=== PATIENT | female | born 1995 | race Caucasian/White ===

== ENCOUNTER 2021-09-08 22:57 | Inpatient (IN) ==
[2021-09-08] MEDS ORDERED: OXYTOCIN/LR 20 UNIT/1,000 ML BAG IV PRN (23:29)
[2021-09-08] MEDS ORDERED: BUTORPHANOL 2 MG/ML VIAL IV PRN (23:29)
[2021-09-08] MEDS ORDERED: ONDANSETRON 4 MG/2 ML VIAL IV PRN (23:29)
[2021-09-08] MEDS ORDERED: LACTATED RINGERS 1,000 ML IV SCH (23:30)
[2021-09-08 23:54] LABS: Basophils % 0.4 % (0.0-0.8); Eosinophils % 0.1 % (0.00-10.9); Hematocrit 36.7 VOL% (35.7-47.0); Hemoglobin 12.2 GM/DL (12.0-16.0); Immature Granulocytes % 0.9 %; Lymphocytes # 2.5 10*3/uL (1.4-4.0); Mean Corpuscular HGB Conc 33.2 GM/DL (32-36); Mean Corpuscular Volume 87.2 FL (87-102); Mean Platelet Volume 10.8 FL (9.6-12.0); Monocytes % 7.5 % (1.7-12.7); Neutrophils % 68.1 % (38.7-73.9); Platelet Count 193 T/CUMM (130-400); Red Blood Count 4.21 MC/CUMM (3.8-5.5); Red Cell Distribution Width 12.2 % (9.3-17.3); White Blood Count 10.8 T/CUMM (4-12)
[2021-09-09 00:10] LABS: Albumin 2.8 G/DL (3.4-5.0); Bilirubin,Total 0.4 MG/DL (0.20-1.00); Calcium 8.9 MG/DL (8.5-10.1); Osmolality,Calculated 270.8 MOS/KG (273-304); Potassium 3.4 MMOL/L (3.5-5.1); Total Protein 6.9 G/DL (6.4-8.2)
[2021-09-09 00:34] LABS: Hepatitis B Surface Ag Quant 0.14 Index; Hepatitis B Surface Ag Result Non-Reactive (NonReactive)
[2021-09-09] MEDS ORDERED: hydrOXYzine HCL 25 MG/1 ML VIAL IM PRN (02:53)
[2021-09-09] MEDS ORDERED: PROMETHAZINE 25 MG/1 ML VIAL IM PRN (02:53)
[2021-09-09] MEDS ORDERED: ONDANSETRON 4 MG/2 ML VIAL IV PRN ×2 (02:53→09:38)
[2021-09-09] MEDS ORDERED: ePHEDrine 50 MG/ML VIAL IV PRN (02:53)
[2021-09-09] MEDS ORDERED: diphenhydrAMINE 50 MG/1 ML VIAL IV PRN ×2 (02:53)
[2021-09-09] MEDS ORDERED: NALOXONE 0.4 MG/ML VIAL IV PRN (02:53)
[2021-09-09] MEDS ORDERED: FAMOTIDINE 20 MG/2 ML VIAL IV ONE (02:55)
[2021-09-09] MEDS ORDERED: CITRIC ACID/SODIUM CITRATE 30 ML UDCUP PO ONE (02:55)
[2021-09-09] MEDS ORDERED: LACTATED RINGERS 1,000 ML IV ONE (02:56)
[2021-09-09] MEDS ORDERED: fentaNYL 2 MCG/ROPIV 0.2% EPID 100 ML EPIDURAL SCH (03:00)
[2021-09-09 04:26] LABS: HIV Antigen/Antibody Result Nonreactive (Nonreactive)
[2021-09-09 05:52] LABS: Bacteria,Urine Occasional /HPF (Few); Bilirubin,Urine Negative (Negative); Blood, Urine Negative (Negative); Glucose,Urine (UA) 50 mg/dL (Negative); Ketones,Urine 80 mg/dL (Negative); Mucus,Urine Occasional /LPF (Occasional); Nitrite,Urine Negative (Negative); Protein,Urine 30 MG/DL; RBC,Urine <1 /HPF (0-4); Squamous Epithelial Cell,Urine Occasional /HPF (0-10); Urine Appearance CLEAR (Clear); Urine Color Yellow (Yellow); Urine Specific Gravity 1.016 (1.001-1.035); Urine Urobilinogen < 2.0 EU/DL (<2.0)
[2021-09-09] MEDS ORDERED: METHYLERGONOVINE 0.2 MG/1 ML AMP ONE (07:11)
[2021-09-09] MEDS ORDERED: miSOPROStoL 200 MCG TABLET ONE (07:11)
[2021-09-09] MEDS ORDERED: HYDROCORTISONE 2.5% RECTAL CREAM 30 GM TUBE TOP PRN (09:38)
[2021-09-09] MEDS ORDERED: DIPH/TET/ACEL PERT BOOSTER VACCINE 0.5 ML VIAL IM ONE (09:38)
[2021-09-09] MEDS ORDERED: MEASLES/MUMPS/RUBELLA VACCINE 0.5 ML VIAL SUBCUT ONE (09:38)
[2021-09-09] MEDS ORDERED: LANOLIN 50% CREAM 0.3 OZ TUBE TOP PRN (09:38)
[2021-09-09] MEDS ORDERED: oxyCODONE/ACETAMINOPHEN 5-325 MG TABLET PO PRN ×2 (09:38)
[2021-09-09] MEDS ORDERED: RHO(D) IMMUNE GLOBULIN 300 MCG SYRINGE IM ONE (09:38)
[2021-09-09] MEDS ORDERED: OXYTOCIN/LR 20 UNIT/1,000 ML BAG IV ONE (09:38)
[2021-09-09] MEDS ORDERED: BENZOCAINE 20%/MENTHOL 0.5% SPRAY 56 GM CAN TOP PRN (09:38)
[2021-09-09] MEDS ORDERED: BISACODYL 10 MG SUPP RECTAL PRN (09:38)
[2021-09-09] MEDS ORDERED: WITCH HAZEL PADS 100/JAR TOP PRN (09:38)
[2021-09-09] MEDS ORDERED: ACETAMINOPHEN 325 MG TABLET PO PRN (09:38)
[2021-09-09 09:44] LABS: Cord Venous Blood HCO3 23.4 MMOL/L; Cord Venous Blood PCO2 42.8 MMHG; Cord Venous Blood PO2 26.6
[2021-09-09] MEDS: IBUPROFEN 800 MG TABLET PO PRN (16:30)
[2021-09-09] MEDS: DOCUSATE SODIUM 100 MG CAPSULE PO SCH (20:45)
[2021-09-10 05:08] LABS: Basophils # 0.1 10*3/uL (0.0-0.2); Basophils % 0.3 % (0.0-0.8); Eosinophils % 0.1 % (0.00-10.9); Hematocrit 33.8 VOL% (35.7-47.0); Hemoglobin 11.4 GM/DL (12.0-16.0); Immature Granulocytes % 1.3 %; Immature Granulocytes Absolute 0.19 #; Lymphocytes % 13.3 % (21.3-54.2); Mean Corpuscular HGB Conc 33.7 GM/DL (32-36); Mean Platelet Volume 10.8 FL (9.6-12.0); Monocytes % 5.9 % (1.7-12.7); Neutrophils % 79.1 % (38.7-73.9); Platelet Count 178 T/CUMM (130-400); Red Blood Count 3.84 MC/CUMM (3.8-5.5); Red Cell Distribution Width 12.2 % (9.3-17.3); White Blood Count 14.9 T/CUMM (4-12)
[2021-09-10] MEDS: IBUPROFEN 800 MG TABLET PO PRN ×2 (07:31→19:41)
[2021-09-10] MEDS: DOCUSATE SODIUM 100 MG CAPSULE PO SCH ×4 (07:33→22:39)
[2021-09-10] MEDS ORDERED: ACETAMINOPHEN/CODEINE 300-30 MG TABLET PO PRN ×2 (08:49)
[2021-09-11 07:56] VITALS: BP 130/87
[2021-09-11] MEDS: DOCUSATE SODIUM 100 MG CAPSULE PO SCH (08:50)
== END 2021-09-11 11:20 | disposition home or self-care (01) | DRG 807 ==
LOC: N.LD 22:57 → N.OB 09-09 11:40
PROVIDERS: ADMIT Obstetrics & Gynecology; ATTEND Obstetrics & Gynecology